=== PATIENT | female | born 2000 | race Two or more races ===

== ENCOUNTER 2021-05-08 22:22 | Observation (INO) | payer MEDICAID, OTHER ==
[~2021-05-08] VITALS: Ht 152.4 cm; Wt 56.7 kg
== END 2021-05-08 23:39 | disposition home or self-care (01) ==
LOC: LDRP 22:22
PROVIDERS: ADMIT Obstetrics & Gynecology; ATTEND Obstetrics & Gynecology
DX: O62.9 Abnormality of forces of labor, unspecified (principal); O26.893 Other specified pregnancy related conditions, third trimester; R10.9 Unspecified abdominal pain; Z3A.38 38 weeks gestation of pregnancy
CPT/HCPCS: 59025; 81002; G0378; G0379